=== PATIENT | female | born 1955 | race Caucasian/White ===

== ENCOUNTER → 2020-08-29 00:25 | Outpatient (CLI) | payer OTHER, SELFPAY ==
[2020-08-29 21:19] LABS: SARS-CoV-2 RNA PCR Negative
== END ==
PROVIDERS: Visit Provider Obstetrics & Gynecology
DX: Z01.812 Encounter for preprocedural laboratory examination (principal); Z20.822 Contact with and (suspected) exposure to COVID-19
CPT/HCPCS: C9803; U0003; U0005

== ENCOUNTER 2020-10-07 07:56 | Outpatient (CLI) | payer MEDICARE, MEDICAID, SELFPAY ==
--- NOTE | 2020-10-07 08:00 | ECG_ITS ---
Measurements Intervals [place] Rate: 82 P: [place]: 0 QRS: -55 QRSD: 115 T: 94 QT: 382 QTc: 447 Interpretive Statements ELECTRONIC VENTRICULAR PACEMAKER NO FURTHER INTERPRETATION IS POSSIBLE ATYPICAL ECG Electronically Signed On 10-07-2020 8:37:58 CDT by Ian Thomas D.O.
[2020-10-07 08:38] LABS: INR 1.8; Prothrombin Time 20.2 Seconds (11.1-14.7)
[2020-10-07 08:41] LABS: Anion Gap 2 mmol/L (8-16); Blood Urea Nitrogen 21 mg/dL (7-17); Calcium 9.6 mg/dL (8.4-10.2); Carbon Dioxide 34 mmol/L (22-30); Chloride 104 mmol/L (98-107); Estimated Glomerular Filt Rate > 60; Glucose 98 mg/dL (65-110); Sodium 140 mmol/L (137-145)
[2020-10-07 08:44] LABS: Partial Thromboplastin Time 38.9 SECONDS (22.3-36.8)
== END 2020-10-07 07:57 | disposition home or self-care (01) ==
PROVIDERS: Anesthesiology; PCP Physician Assistant; Visit Provider Obstetrics & Gynecology
DX: I10 Essential (primary) hypertension (principal); Z01.818 Encounter for other preprocedural examination; Z51.81 Encounter for therapeutic drug level monitoring; Z79.899 Other long term (current) drug therapy
CPT/HCPCS: 36415; 80048; 85610; 85730; 93005

== ENCOUNTER → 2020-10-10 05:03 | Outpatient (CLI) | payer MEDICARE, MEDICAID, SELFPAY ==
[2020-10-11 01:36] LABS: SARS-CoV-2 RNA PCR Negative
== END ==
PROVIDERS: PCP Physician Assistant; Visit Provider Obstetrics & Gynecology
DX: Z01.812 Encounter for preprocedural laboratory examination (principal); Z20.822 Contact with and (suspected) exposure to COVID-19
CPT/HCPCS: C9803; U0003; U0005

== ENCOUNTER 2020-10-13 00:25 | Day surgery (SDC) | payer MEDICARE, MEDICAID, SELFPAY ==
[2020-08-28 14:38] VITALS: BMI 38.9
[2020-10-02 13:23] VITALS: BMI 38.7
--- NOTE | 2020-10-12 12:34 | WPDANESEPPF ---
Anes - Initial Pre Proc Eval Procedure: Operation Date: 10/13/20 07:30 Proposed Procedures p Laparoscopic Bilateral Salpingo and Left Oophorectomy - Radha Bagley MD s Hysteroscopy with Biopsy of Endometrium and/or Polypectomy - Radha Bagley MD Date/Time: 10/12/20 12:34 Surgeon: Radha Bagley MD Pre Op Diagnosis: cyst left ovary Patient Data Age: 65 Gender: F Height: 1.78 m Weight: 122.5 kg Allergies Allergy/AdvReac Type Severity Reaction Status Date / Time Contrast Media Allergy Severe Anaphylaxis Uncoded 10/13/20 06:23 Home Medications Medication Instructions Recorded Confirmed Type acetaminophen [Tylenol Extra 1,000 mg PO Q6H PRN 08/28/20 10/13/20 History Strength] amlodipine 5 mg PO QAM 08/28/20 10/13/20 History furosemide 40 mg PO BID 08/28/20 10/13/20 History isosorbide mononitrate 30 mg PO QAM 08/28/20 10/13/20 History lisinopril 20 mg PO QAM 08/28/20 10/13/20 History metoprolol succinate 50 mg PO QAM 08/28/20 10/13/20 History warfarin 6 mg PO 4XW 08/28/20 10/13/20 History warfarin 8 mg PO 3XW 08/28/20 10/13/20 History ECG: Date of Service: 10/07/20 Procedure(s): CA 12 lead EKG Accession Number(s): [id number] cc: ~ Measurements Intervals [place] Rate: 82 P: [place]: 0 QRS: -55 QRSD: 115 T: 94 QT: 382 QTc: 447 Interpretive Statements ELECTRONIC VENTRICULAR PACEMAKER NO FURTHER INTERPRETATION IS POSSIBLE ATYPICAL ECG Electronically Signed On 10-07-2020 8:37:58 CDT by Ian Thomas D.O. Patient hx anesthesia problems: none Family hx anesthesia problems: none PMFSH Past Medical History Medical History (Updated 10/12/20 @ 12:36 by Froy Izaguirre MD) Atrial fibrillation CHF (congestive heart failure) Colon cancer HTN (hypertension) Obesity Osteoarthritis Pacemaker Social History Social History Smoking status: Never smoker Alcohol intake: current Drinks per week: 3 Substance use: never Living arrangements: with family Additional living arrangements comments: SON Spiritual care concerns: No Anes - Eval Final PreProcedure Day of Procedure 10/12/20 12:34 Patient weight: obese Heart: regular rate and rhythm Lungs: clear to auscultation and normal air movement Airway: Mallampati scale class II Neurological: alert and oriented Last oral intake: >/= 8 hours ASA classification: IV Emergent: no Anesthetic plan: proceed Anesthesia type and monitoring: general ETT Informed Consent: The patient's anesthetic plan and its attendant risks and benefits were discussed with the patient/family/POA. Questions were solicited and answers provided to the satisfaction of the patient/family/POA.
[2020-10-13] VITALS (7 sets, daily range): BP systolic 102–124; BP diastolic 60–73; PULSE 79–84; RESP 12–20; TEMP 36.2–36.4; O2SAT 94–99
[2020-10-13] MEDS: ACETAMINOPHEN 500 MG TABLET 1000 MG PO (06:32)
[2020-10-13] MEDS: LACTATED RINGERS 1,000 ML 30 ML IV CONT ×2 (06:40→09:36)
[2020-10-13] MEDS: KETOROLAC 15 MG/ML VIAL (*BKC) IV PUSH (06:42)
--- NOTE | 2020-10-13 07:10 | WPDHPUPDATE1 ---
History and Physical Update Update Date/Time: 10/13/20 07:10 History and Physical has been reviewed, including an updated exam of the patient. There are NO changes in the patient's condition. Risks, benefits, and alternatives have been discussed and questions answered. Patient agrees to proceed with procedure.
[2020-10-13 07:23] LABS: INR 1.1; Prothrombin Time 13.7 Seconds (11.1-14.7)
[2020-10-13 07:24] LABS: Partial Thromboplastin Time 31.9 SECONDS (22.3-36.8)
--- NOTE | 2020-10-13 09:45 | P.OP_ITS ---
Procedure Note - Detailed Date of Procedure 10/13/20 Pre-op Diagnosis cyst left ovary, endometrial polyp Post-op Diagnosis same (Cystic pelvic mass associated with right ovary, pelvic adhesions, tubo- ovarian adhesions bilaterally) Procedure Performed Laparoscopic bilateral salpingo oophorectomy, resection of pelvic mass,. adhesiolysis - one hour. hysteroscopy D&C with polypectomy Surgeon Radha Bagley MD Anesthesia general Indications ovarian cyst, endometrial polyp Findings cystic pelvic mass associated to right ovary, left ovarian cyst, bilateral tubo- ovarian adhesions, endometrial polyp, normal vulva vagina cervix, Description of Procedure The patient was taken the operating room. She was prepped and draped in the dorsal lithotomy position after induction of general anesthesia. A 5 mm skin incision was made in the left upper quadrant of the abdominal skin. A 5 mm trocar was inserted the intra-abdominal cavity under direct visualization of the scope. Pneumoperitoneum was achieved. An 11 mm trocar was inserted in the left lower quadrant identical fashion. A 5 mm infraumbilical trocar was inserted in identical fashion as well. Adhesiolysis was performed for approximately 1 hour. This was done using sharp and blunt dissections along with LigaSure cautery. The ureter on the right side was identified from the pelvic brim down to the mid pelvis. Tubes and ovaries were from the surrounding tissue. The tube and ovary on the right could not be in order to leave the right ovary. There was also a cystic mass associated with the right ovary that was also resected using sharp and blunt dissection. Infundibulopelvic ligaments were cauterized transected bilaterally the surrounding para ovarian tissue was cauterized transected bilaterally this was all done lesions LigaSure cautery. Suspensory ligament of the ovaries were cauterized and transected along with the fallopian tubes at the uterine fundus. Bilateral fallopian tubes and ovaries along with the right c ystic mass were placed in endobag and taken out the left lower quadrant trocar site. Hemoderm was placed over the area dissected on the right hemipelvis. The pneumoperitoneum was reduced. Trocars removed. Skin incisions were closed with subcuticular 4 Monocryl covered Dermabond. A speculum was placed in vagina. The cervix gross grasped with a tenaculum. The hysteroscope was inserted into uterine cavity and above findings were noted. Scissors were used to transect the base the endometrial polyp. The polyp was removed with a curette. The entire intrauterine cavity was curettaged. This was completed the scope was withdrawn. The tenaculum and speculum were removed. The patient tolerated the procedure well. She is taking cover stable condition. Sponge lap needle counts were correct x2. Estimated Blood Loss 20 Drains No Packing No Pathology yes Complications No immediate complications Condition stable Disposition PACU
[2020-10-13] MEDS: fentaNYL CITRATE INJ (*CRX) 100 MCG/2 ML VIAL 25 MCG IV PUSH ×4 (09:49→10:03)
[2020-10-13] MEDS: oxyCODONE HCL (*CRX) 5 MG TAB IR PO (10:42)
== END 2020-10-13 11:48 | disposition home or self-care (01) ==
PROVIDERS: Anesthesiology; PCP Physician Assistant; Visit Provider Obstetrics & Gynecology
PROC: (CPT 49320; principal; 2020-10-13 07:30)
PROC: 0U5B8ZZ Destruction of Endometrium, Via Natural or Artificial Opening Endoscopic (ICD-10-PCS; CPT 58563; 2020-10-13 07:30)
DX: N83.202 Unspecified ovarian cyst, left side (principal); N83.201 Unspecified ovarian cyst, right side; N73.6 Female pelvic peritoneal adhesions (postinfective); N84.0 Polyp of corpus uteri; I48.91 Unspecified atrial fibrillation; I11.0 Hypertensive heart disease with heart failure; I50.9 Heart failure, unspecified; E66.9 Obesity, unspecified; Z68.39 Body mass index [BMI] 39.0-39.9, adult; Z95.0 Presence of cardiac pacemaker; Z79.01 Long term (current) use of anticoagulants; Z79.899 Other long term (current) drug therapy; Z91.041 Radiographic dye allergy status
CPT/HCPCS: 58661; 58558; 36415; 85610; 85730; 88305; A9270; J1100; J1170; J1885; J2250; J2370; J2405; J2704; J2710; J3010; J7030; J7120

== ENCOUNTER → 2021-10-15 13:11 | Outpatient (CLI) | payer MEDICARE, MEDICAID, SELFPAY ==
--- NOTE | ~2021-10-15 | DEXA_ITS ---
Bone Density Report Name: DARLING BANERJEE Age: 66 Sex: Female Ethnicity: White Date of : 1955 Indication: postmenopausal; screening for osteoporosis; height loss; prior fracture; Referring Provider: Radha Bagley Study: Bone densitometry was performed. Exam Date: October 15, 2021 Accession number: [id number] Bone Density: Region BMD T-score Z-score Classification AP Spine (L1-L4) 1.094 0.4 2.4 Normal Femoral Neck (Left) 0.777 -0.6 1.1 Normal Total Hip (Left) 1.044 0.8 2.3 Normal World Health Organization criteria for BMD impression classify patients as: Normal (T-score at or above -1.0), Osteopenia (T-score between -1.0 and -2.5), or Osteoporosis (T-score at or below -2.5). 10-year Fracture Risk: FRAX not reported because: All T-scores for Spine Total, Hip Total, Femoral Neck at or above -1.0 Clinical Information Provided by Patient: Has had a low trauma fracture Has used the following medications: Vitamin D Patient maximum height was 70 Menopause Age: 61 No regular weight bearing exercise Drinks caffeinated beverages Onset of menses at age 10 Number of children 5 Impression: The patient has normal bone mass. The patient has risk factors, including: previous fracture. Discussion: BONE DENSITY IS ABOVE THE MINIMUM DESIRABLE LEVEL AT ALL SKELETAL SITES TESTED. This patient?s bone mineral density is above the minimum desirable level (T-score -1.0 or better) at all sites measured. The patient should follow a healthful lifestyle (good nutrition with adequate calcium and vitamin D, and appropriate weight-bearing exercise). Follow-Up: Consider repeating this study in 5 years or sooner if there is some new clinical indication. Reported by: CLAUDIA on 10/15/2021 1:36:00 PM. Reviewed, dictated and finalized at location [facility]
== END ==
PROVIDERS: PCP Physician Assistant; Visit Provider Obstetrics & Gynecology
DX: Z78.0 Asymptomatic menopausal state (principal)
CPT/HCPCS: 77080